=== PATIENT | male | born 1965 | race Hispanic/Latino ===

== ENCOUNTER 2020-05-15 09:00 | Observation (INO) | payer BC ==
[~2020-05-15] VITALS: Ht 165.1 cm; Wt 112.9 kg
[2020-05-15 09:44] LABS: BASOPHILS % (AUTO) 0.4 % (0.0-5.0); EOSINOPHILS % (AUTO) 2.5 % (0.0-8.0); HEMATOCRIT 45.3 % (42-54); LYMPHOCYTES % (AUTO) 24.3 % (21.0-51.0); MEAN CORPUSCULAR HEMOGLOBIN 30.6 pg (27.0-33.0); MEAN CORPUSCULAR VOLUME 89.9 fL (79-99); NEUTROPHILS % (AUTO) 67.6 % (40.0-77.0); PLATELET COUNT (AUTO) 219 K/uL (130-400); RED BLOOD CELL COUNT(AUTO) 5.04 MIL/uL (4.50-6.20); RED CELL DISTRIBUTION WIDTH 12.6 % (11.0-15.5); WHITE BLOOD COUNT (AUTO) 9.3 K/uL (4.8-10.8)
[2020-05-15 09:52] LABS: POTASSIUM 4.2 mmol/L (3.5-5.1)
[2020-05-19 09:08] VITALS: BP 149/92
[2020-05-19] MEDS ORDERED: CARV6.25 PO (09:59)
[2020-05-19] MEDS ORDERED: ATOR20TA65 PO (09:59)
[2020-05-19] MEDS ORDERED: LOSA25TA41 PO (09:59)
[2020-05-19] MEDS ORDERED: GABA-529 PO (09:59)
[2020-05-19] MEDS ORDERED: LISI-809 PO (09:59)
[2020-05-19] MEDS ORDERED: ASPI-1443 PO (09:59)
[2020-05-20] VITALS (23 sets, daily range): BP systolic 111–153; BP diastolic 60–90
[2020-05-20] MEDS: CEFAZOLIN SODIUM 1 GM VIAL IVP SCH ×2 (06:00→07:45)
[2020-05-20] MEDS ORDERED: LACTATED RINGERS 1000ML 1,000 ML IV ONE (06:37)
[2020-05-20] MEDS ORDERED: CEFAZOLIN SODIUM 1 GM VIAL ONE ×2 (06:41→07:34)
[2020-05-20] MEDS ORDERED: BUPIVACAINE/EPI/PF 0.25% 30ML VIAL IJ ONE (06:41)
[2020-05-20] MEDS ORDERED: THROMBIN-JMI 20000 UNIT KIT TP ONE (06:42)
[2020-05-20] MEDS ORDERED: DURAMORPH PF1 MG/ML 10ML AMP IV ONE (06:42)
[2020-05-20] MEDS ORDERED: LIDOCAINE PF 2% 5ML ABBOJECT ONE (06:52)
[2020-05-20] MEDS ORDERED: SUCCINYLCHOLINE CHLORIDE 20 MG/ML 10 ML VIAL ONE (06:52)
[2020-05-20] MEDS ORDERED: NEOSTIGMINE 5MG/5ML SYR IV ONE (06:53)
[2020-05-20] MEDS ORDERED: PROPOFOL 10 MG/ML 20ML VIAL IV ONE (06:53)
[2020-05-20] MEDS ORDERED: ROCURONIUM 10MG/1ML SYR 10 MG/ML ML ONE ×2 (06:53→08:12)
[2020-05-20] MEDS ORDERED: MIDAZOLAM HCL 1 MG/ML 2ML VIAL ONE (06:53)
[2020-05-20] MEDS ORDERED: GLYCOPYRROLATE 1 MG/5 ML SYRINGE ONE (06:53)
[2020-05-20] MEDS ORDERED: ONDANSETRON HCL 4 MG/2 ML VIAL ONE ×2 (06:53→07:43)
[2020-05-20] MEDS ORDERED: DEXAMETHASONE SOD PHOSPHATE 10MG/ML 1ML VIAL ONE (06:53)
[2020-05-20] MEDS ORDERED: FENTANYL CITRATE PF 50 MCG/1 ML 2ML VIAL ONE ×2 (06:54→09:57)
[2020-05-20] MEDS ORDERED: KETAMINE 50MG/ML SYRINGE 50 MG/ML DISP.SYRIN IV ONE (07:18)
[2020-05-20] MEDS ORDERED: EPHEDRINE SULFATE 50 MG/ML AMPULE ONE (07:19)
[2020-05-20] MEDS: DEXAMETHASONE SOD PHOSPHATE 4 MG/ML 1ML VIAL IVP SCH ×3 (10:30→22:30)
[2020-05-20] MEDS ORDERED: SODIUM CHLORIDE 0.9% 10 ML VIAL IVP PRN (10:30)
[2020-05-20] MEDS ORDERED: PROMETHAZINE HCL 25 MG/ML 1ML AMPULE IM PRN (10:30)
[2020-05-20] MEDS ORDERED: HYDROCODONE/ACETAMINOPHEN 5/325 MG TAB PO PRN (10:30)
[2020-05-20] MEDS: LACTATED RINGERS 1000ML 1,000 ML IV SCH ×2 (10:30→23:50)
[2020-05-20] MEDS ORDERED: MORPHINE SULFATE 2 MG/ML 1ML SYG IVP PRN (10:30)
[2020-05-20] MEDS ORDERED: CEFAZOLIN 3GM /D5W 100ML 100 ML IV SCH (10:30)
[2020-05-20] MEDS ORDERED: CEFAZOLIN SODIUM 3 GM in SODIUM CHLORIDE 0.9% 100 ML IV SCH (10:45)
[2020-05-20] MEDS ORDERED: COMPOUND IV REFRIGERATED 1 EACH IVSOLN MISC PRN (14:30)
[2020-05-20] MEDS: CEFAZOLIN SODIUM 3 GM in SODIUM CHLORIDE 0.9% 100 ML IV SCH (16:28)
[2020-05-20] MEDS: CARVEDILOL 6.25 MG TABLET PO SCH (20:53)
[2020-05-20] MEDS ORDERED: GABAPENTIN 100 MG CAPSULE PO SCH (21:00)
[2020-05-20] MEDS ORDERED: LOSARTAN 25 MG TABLET PO SCH (21:00)
[2020-05-21] MEDS: CEFAZOLIN SODIUM 3 GM in SODIUM CHLORIDE 0.9% 100 ML IV SCH (00:51)
[2020-05-21 04:04] VITALS: BP 111/51
[2020-05-21] MEDS: DEXAMETHASONE SOD PHOSPHATE 4 MG/ML 1ML VIAL IVP SCH (04:11)
[2020-05-21 08:00] VITALS: BP 109/50
[2020-05-21] MEDS ORDERED: ASPIRIN 81 MG EC TAB PO SCH (09:00)
[2020-05-21] MEDS ORDERED: LISINOPRIL 5 MG TABLET PO SCH (09:00)
[2020-05-21] MEDS ORDERED: ATORVASTATIN CALCIUM 20 MG TABLET PO SCH (09:00)
[2020-05-21] MEDS: CARVEDILOL 6.25 MG TABLET PO SCH (09:17)
[2020-05-21 12:03] VITALS: BP 111/51
== END 2020-05-21 14:00 | disposition home or self-care (01) ==
LOC: DAHIP 05-20 05:30 → EDSTATUS 05-20 09:00 → 3AH 05-20 12:00
PROVIDERS: ADMIT Neurological Surgery; ATTEND Neurological Surgery
DX: M48.061 Spinal stenosis, lumbar region without neurogenic claudication (principal); Z20.822 Contact with and (suspected) exposure to COVID-19; I10 Essential (primary) hypertension; E11.9 Type 2 diabetes mellitus without complications; I42.0 Dilated cardiomyopathy; E66.01 Morbid (severe) obesity due to excess calories; Z95.0 Presence of cardiac pacemaker; Z79.82 Long term (current) use of aspirin; Z79.84 Long term (current) use of oral hypoglycemic drugs; Z79.899 Other long term (current) drug therapy; Z68.41 Body mass index [BMI] 40.0-44.9, adult
CPT/HCPCS: 36415; 63047; 63048 ×2; 71045; 72020; 80051; 85025; 96361; 96365; 96366; 96372; 96375; 96376 ×2; A4215; A4221; A4222; A4223; A4344; A4600; A4649 ×3; A4663; G0378 ×28; J0330; J0690 ×4; J1100 ×4; J2001; J2250; J2274; J2405 ×2; J2550; J2704; J2710; J3010 ×2; J3490 ×4; J7030; J7120 ×3; U0003